=== PATIENT | female | born 1990 | race African-American/Black ===

== ENCOUNTER 2021-09-03 08:43 | Emergency (ER) | payer OTHER ==
[~2021-09-03] VITALS: Ht 167.6 cm; Wt 94.8 kg
[2021-09-03 08:45] VITALS: BP 107/50
[2021-09-03 09:38] LABS: URINE BILIRUBIN NEGATIVE (Negative); URINE BLOOD 3+ (Negative); URINE CLARITY CLOUDY; URINE COLOR RED; URINE GLUCOSE-RANDOM* NEGATIVE (Negative); URINE KETONES NEGATIVE (Negative); URINE PROTEIN (DIPSTICK) 1+ (Negative); URINE SPECIFIC GRAVITY 1.015 (1.005-1.035); URINE UROBILINOGEN 0.2 E.U./dl (0.2-1.0)
[2021-09-03 09:48] LABS: URINE LEUKOCYTES-REFLEX 1+ (Negative); URINE NITRITE-REFLEX POSITIVE (Negative)
[2021-09-03 09:59] LABS: CASTS None Seen /LPF (None Seen); SQUAMOUS >10 Many /LPF (0-3)
[2021-09-03 10:00] LABS: CRYSTALS None Seen /LPF (None Seen); URINE WBC-REFLEX >25 Many /HPF (0-5)
[2021-09-03] MEDS ORDERED: IBUPROFEN 600600 M1 PO (10:10)
[2021-09-03] MEDS ORDERED: CEPHALEXIN500 MG PO (10:10)
== END 2021-09-03 10:17 | disposition home or self-care (01) ==
LOC: ER 08:43
PROVIDERS: Student in an Organized Health Care Education/Training Program
DX: N30.91 Cystitis, unspecified with hematuria (principal); F17.200 Nicotine dependence, unspecified, uncomplicated